=== PATIENT | female | born 1945 | race Caucasian/White ===

== ENCOUNTER → 2018-08-29 | Outpatient (CLI) | payer MEDICARE, BC ==
[~2018-08-29] VITALS: Ht 152.4 cm; Wt 73.8 kg
[~2018-08-29] MED LIST: ACETAMINOPHEN 500 MG TABLET PO ONE; AMIT10TA PO; ASCO1TAB4 PO; CALC-123 PO; CELE200C PO; CHLO25TA PO; CHOL5000 PO; CYAN50003 PO; DOCU-131 PO; EPINEPHRINE 1 MG/ML, 1ML ONE; ESTR0.5T PO; FLUT9.9S NS; FOLI0.4T2 PO; GABAPENTIN 300 MG CAPSULE PO ONE; KETOROLAC 60 MG/2 ML ONE; KRIL1CAP23 PO; LACTATED RINGERS 1,000 ML IV SCH; MAGN250T8 PO; MULT-717 PO; ONDA4TAB7 PO; OXYC5TAB2 PO; POTA99TA3 PO; PROP10DR2 EACHEYE; RANI150T4 PO; RIVA10TA PO; ROPIvacaine/PF 0.2%, 20 ML ONE; TRAM50TA2 PO; TRANEXAMIC ACID 100 MG/ML, 10ML ONE; UBID100C41 PO; VERA180T56 PO; VIT1CAPS10 PO
[2018-08-29 13:45] VITALS: BP 154/80
== END | disposition home or self-care (01) ==
LOC: CLISVCS 05:00 → UNDOADMIN 12:43 → ORIP 12:43 → EDSTATUS 14:30
PROVIDERS: ATTEND Orthopaedic Surgery
DX: M25.551 Pain in right hip (principal)
CPT/HCPCS: 36415; 86850; 86900; J7120; J0171; J1885; J2795

== ENCOUNTER 2018-09-05 10:31 | Inpatient (IN) | payer MEDICARE, BC ==
[~2018-09-05] VITALS: Ht 152.4 cm; Wt 77.6 kg
[~2018-09-05 10:31] MED LIST changes: -ACETAMINOPHEN 500 MG TABLET PO ONE; -DOCU-131 PO; -GABAPENTIN 300 MG CAPSULE PO ONE; -LACTATED RINGERS 1,000 ML IV SCH; -ONDA4TAB7 PO; -OXYC5TAB2 PO; -TRAM50TA2 PO
[2018-09-05] MEDS ORDERED: LACTATED RINGERS 1,000 ML IV SCH (11:26)
[2018-09-05 11:34] VITALS: BP 119/74
[2018-09-05] MEDS ORDERED: PROPOFOL 10 MG/ML, 20ML ONE (12:06)
[2018-09-05] MEDS ORDERED: NEOSTIGMINE 1 MG/ML, 10ML ONE (12:06)
[2018-09-05] MEDS ORDERED: ONDANSETRON 2MG/ML, 2ML ONE (12:06)
[2018-09-05] MEDS ORDERED: SUCCINYLCHOLINE 20 MG/ML, 10ML ONE (12:06)
[2018-09-05] MEDS ORDERED: GLYCOPYRROLATE 0.2MG/1ML, 5ML ONE (12:06)
[2018-09-05] MEDS ORDERED: ROCURONIUM 10MG/ML,5ML ONE (12:06)
[2018-09-05] MEDS ORDERED: FENTANYL PF 250 MCG/5ML ONE (12:06)
[2018-09-05] MEDS ORDERED: CEFAZOLIN 1,000 MG ONE (12:06)
[2018-09-05] MEDS ORDERED: DEXAMETHASONE 4 MG/ML, 1ML ONE (12:06)
[2018-09-05] MEDS ORDERED: LIDOCAINE 2% 100MG/5ML SYRINGE ONE (13:28)
[2018-09-05] MEDS ORDERED: OXYcodone IR 5MG TABLET PO PRN (13:30)
[2018-09-05] MEDS ORDERED: ALUMINUM/MAG/SIMETHICONE 30 ML UDC PO PRN (13:30)
[2018-09-05] MEDS ORDERED: ONDANSETRON 2MG/ML, 2ML IV PRN ×2 (13:30→14:00)
[2018-09-05] MEDS ORDERED: PROMETHAZINE 25 MG/ML, 1ML IM PRN (13:30)
[2018-09-05] MEDS ORDERED: TRANEXAMIC ACID 1,000 MG in SODIUM CHLORIDE 0.9% 100 ML IVPB ONE (13:30)
[2018-09-05] MEDS ORDERED: PROMETHAZINE 12.5 MG SUPP PR PRN (13:30)
[2018-09-05] MEDS ORDERED: HYDROmorphone 1 MG/ML, 1ML IV PRN (13:30)
[2018-09-05] MEDS ORDERED: SENNA/DOCUSATE TABLET PO PRN (13:30)
[2018-09-05] MEDS ORDERED: ACETAMINOPHEN 650 MG/20.3 ML UDC PO PRN (13:30)
[2018-09-05] MEDS ORDERED: BISACODYL 10 MG SUPP PR PRN (13:30)
[2018-09-05] MEDS ORDERED: ONDANSETRON 4 MG TABLET PO PRN (13:30)
[2018-09-05] MEDS ORDERED: MAGNESIUM HYDROXIDE 8%, 30ML UDC PO PRN (13:30)
[2018-09-05] MEDS ORDERED: DIPHENHYDRAMINE 50 MG CAPSULE PO PRN (13:30)
[2018-09-05] MEDS ORDERED: FENTANYL PF 100 MCG/2ML ONE ×2 (13:56→15:30)
[2018-09-05] MEDS ORDERED: hydrALAzine 20 MG/ML, 1ML IV PRN (14:00)
[2018-09-05] MEDS ORDERED: FENTANYL PF 100 MCG/2ML IV PRN (14:00)
[2018-09-05] MEDS ORDERED: ONDANSETRON ODT 8 MG PO PRN (14:00)
[2018-09-05] MEDS ORDERED: DIAZEPAM 5 MG/ML, 2ML IVPush PRN (14:00)
[2018-09-05] MEDS ORDERED: LABETALOL 5MG/ML, 20ML IV PRN (14:00)
[2018-09-05] MEDS ORDERED: ACETAMINOPHEN 325 MG TABLET PO PRN (14:00)
[2018-09-05] MEDS ORDERED: OXYcodone 5 MG/5 ML ORAL.SOL UDC PO PRN (14:00)
[2018-09-05] MEDS ORDERED: PROMETHAZINE 25 MG/ML, 1ML IV PRN (14:00)
[2018-09-05] MEDS ORDERED: HYDROmorphone 2 MG/ML, 1ML IVPush PRN (14:00)
[2018-09-05] MEDS ORDERED: MEPERIDINE/PF 50 MG/ML ONE (15:24)
[2018-09-05] MEDS ORDERED: ACETAMINOPHEN 650 MG/20.3 ML UDC ONE ×2 (15:30→15:34)
[2018-09-05] MEDS ORDERED: MEPERIDINE/PF 25MG/0.5ML IVPush PRN (15:30)
[2018-09-05] MEDS ORDERED: OXYcodone 5 MG/5 ML ORAL.SOL UDC ONE (15:30)
[2018-09-05 16:15] VITALS: BP 156/80
[2018-09-05] MEDS: D5%-0.45NACL+KCL 20MEQ 1,000 ML IV SCH (20:00)
[2018-09-05 20:03] VITALS: BP 121/63
[2018-09-05] MEDS ORDERED: CHLORTHALIDONE 25 MG TABLET PO SCH (21:00)
[2018-09-05] MEDS: DOCUSATE 100 MG CAPSULE PO SCH (21:00)
[2018-09-05] MEDS ORDERED: ARTIFICIAL TEARS 15 DROP/ML BOTTLE EACHEYE SCH (21:00)
[2018-09-05] MEDS ORDERED: AMITRIPTYLINE 10 MG TABLET PO SCH (21:00)
[2018-09-05] MEDS ORDERED: FLUTICASONE NASAL SPRAY 16GM NAS SCH (21:00)
[2018-09-05] MEDS: CEFAZOLIN PMX 1GM/50ML 50 ML IVPB SCH (22:36)
[2018-09-06 00:31] VITALS: BP 114/65
[2018-09-06 04:38] VITALS: BP 123/71
[2018-09-06] MEDS: CEFAZOLIN PMX 1GM/50ML 50 ML IVPB SCH (04:47)
[2018-09-06] MEDS: D5%-0.45NACL+KCL 20MEQ 1,000 ML IV SCH (06:00)
[2018-09-06] MEDS ORDERED: DEXAMETHASONE 4 MG/ML, 1ML IVPush SCH (06:00)
[2018-09-06 07:32] VITALS: BP 123/77
[2018-09-06] MEDS: DOCUSATE 100 MG CAPSULE PO SCH (08:47)
[2018-09-06] MEDS ORDERED: TAMSULOSIN 0.4 MG CAP.ER.24H PO SCH (09:00)
[2018-09-06] MEDS ORDERED: FAMOTIDINE 20 MG TABLET PO SCH (09:00)
[2018-09-06] MEDS ORDERED: VERAPAMIL ER 180MG TABLET.ER PO SCH (09:00)
[2018-09-06] MEDS ORDERED: RIVAROXABAN 10 MG TABLET PO SCH (09:00)
[2018-09-06] MEDS ORDERED: ONDA4TAB7 PO (11:24)
[2018-09-06] MEDS ORDERED: DOCU-131 PO (11:26)
[2018-09-06] MEDS ORDERED: TRAM50TA2 PO (11:28)
[2018-09-06] MEDS ORDERED: OXYC5TAB2 PO (11:30)
[2018-09-06] MEDS ORDERED: KETOROLAC 30 MG/1 ML IV SCH (13:30)
== END 2018-09-06 13:12 | disposition home or self-care (01) | DRG 469 ==
LOC: ORIP 10:31 → 4NOR 16:01 → DCLOUNGE 09-06 12:52
PROVIDERS: ADMIT Orthopaedic Surgery; ATTEND Orthopaedic Surgery
PROC: 0SR906Z Replacement of Right Hip Joint with Oxidized Zirconium on Polyethylene Synthetic Substitute, Open Approach (ICD-10-PCS; principal; 2018-09-05 12:45)
DX: M16.11 Unilateral primary osteoarthritis, right hip (principal); R53.2 Functional quadriplegia; I10 Essential (primary) hypertension; I48.91 Unspecified atrial fibrillation; G47.33 Obstructive sleep apnea (adult) (pediatric); Z88.6 Allergy status to analgesic agent; Z88.5 Allergy status to narcotic agent
CPT/HCPCS: 36415; 72170; 85014; 85018; 86850; 86900; C1713; G0378; J0171; J0690; J1100; J1885; J2175; J2405; J2704; J2710; J2795; J3010; J3490; C1776; J0330; J7120